=== PATIENT | female | born 1960 | race Caucasian/White ===

== ENCOUNTER 2020-02-23 20:16 | Emergency (ER) | payer OTHER ==
[~2020-02-23] VITALS: Ht 167.6 cm; Wt 70.3 kg
== END 2020-02-23 21:46 | disposition home or self-care (01) ==
LOC: ER 20:16
DX: S80.872A Other superficial bite, left lower leg, initial encounter (principal); S80.871A Other superficial bite, right lower leg, initial encounter; W55.01XA Bitten by cat, initial encounter; Y93.89 Activity, other specified; Y92.69 Other specified industrial and construction area as the place of occurrence of the external cause; Y99.8 Other external cause status

== ENCOUNTER 2020-03-03 14:27 | Emergency (ER) | payer OTHER ==
[~2020-03-03] VITALS: Ht 167.6 cm; Wt 68.0 kg
[2020-03-03] MEDS ORDERED: ZIPSOR25 MG PO (14:56)
[2020-03-03] MEDS ORDERED: HYDROXYZIN10 MG/5 ML PO (14:57)
== END 2020-03-03 16:52 | disposition home or self-care (01) ==
LOC: ER 14:27
DX: R53.1 Weakness (principal); F41.8 Other specified anxiety disorders